=== PATIENT | male | born 1990 ===

== ENCOUNTER 2021-03-12 06:16 | Day surgery (SDC) | payer OTHER ==
[2021-03-08 12:57] VITALS: BMI 25.8
[2021-03-12] MEDS ORDERED: oxyCODONE HCL 5 MG TABLET PO PRN (07:13)
[2021-03-12] MEDS ORDERED: ACETAMINOPHEN 325 MG TABLET (FP) PO PRN (07:13)
[2021-03-12] MEDS ORDERED: BUPIVACAINE HCL/PF 2.5 MG/ML - 30 ML VIAL IJ ONE (07:17)
[2021-03-12] MEDS ORDERED: MIDAZOLAM HCL 2 MG/2 ML SINGLE DOSE VIAL ONE (07:27)
[2021-03-12] MEDS ORDERED: SUCCINYLCHOLINE CHLORIDE 200 MG/10 ML SYRINGE ONE (07:33)
[2021-03-12] MEDS ORDERED: PROPOFOL 20 ML ONE ×2 (07:33)
[2021-03-12] MEDS ORDERED: ONDANSETRON 4 MG/2 ML VIAL ONE (07:37)
[2021-03-12] MEDS ORDERED: DEXAMETHASONE SOD PHOSPHATE 4 MG/1 ML VIAL ONE (07:37)
[2021-03-12] MEDS ORDERED: ceFAZolin SODIUM 1 GM VIAL ONE (07:37)
[2021-03-12] MEDS ORDERED: ONDANSETRON 4 MG/2 ML VIAL IVPUSH PRN (08:35)
[2021-03-12] MEDS ORDERED: LACTATED RINGERS SOLUTION 1,000 ML IV SCH (08:45)
[2021-03-12 09:29] VITALS: TEMP 97.8
[2021-03-12 12:07] VITALS: BP 120/74; PULSE 72
== END 2021-03-12 10:35 | disposition home or self-care (01) ==
LOC: FASU 06:16
PROVIDERS: ATTEND Orthopaedic Surgery
PROC: 0JBH0ZZ Excision of Left Lower Arm Subcutaneous Tissue and Fascia, Open Approach (ICD-10-PCS; principal; 2021-03-12 07:54)
DX: M67.422 Ganglion, left elbow (principal)
CPT/HCPCS: 88304-TC; 94760